=== PATIENT | male | born 1995 | race Hispanic/Latino ===

== ENCOUNTER 2017-06-24 20:54 | Emergency (ER) | payer BC ==
[~2017-06-24] VITALS: Ht 165.1 cm; Wt 68.0 kg
[2017-06-24 21:47] VITALS: BP 145/80
== END 2017-06-24 21:48 | disposition home or self-care (01) ==
LOC: FSED 20:54
DX: M54.5 Low back pain (principal); S30.0XXA Contusion of lower back and pelvis, initial encounter; M79.641 Pain in right hand; S60.011A Contusion of right thumb without damage to nail, initial encounter; V43.52XA Car driver injured in collision with other type car in traffic accident, initial encounter; Y92.488 Other paved roadways as the place of occurrence of the external cause
CPT/HCPCS: 99282